=== PATIENT | male | born 1975 | race Hispanic/Latino ===

== ENCOUNTER 2024-02-06 08:02 | Outpatient (CLI) | payer BC | END 2024-02-06 08:03 | disposition home or self-care (01) | LOC: CSHSLEEP 08:02 | PROVIDERS: ATTEND Family Medicine | DX: G47.33 Obstructive sleep apnea (adult) (pediatric) (principal); R06.83 Snoring | CPT/HCPCS: 95800 ==

== ENCOUNTER 2024-02-25 08:23 | Outpatient (CLI) | payer BC | END 2024-02-25 08:24 | disposition home or self-care (01) | LOC: CSHSLEEP 08:23 | PROVIDERS: ATTEND Family Medicine | DX: G47.33 Obstructive sleep apnea (adult) (pediatric) (principal); R06.83 Snoring | CPT/HCPCS: 95811 ==